=== PATIENT | female | born 2005 | race Two or more races ===

== ENCOUNTER 2024-01-31 16:48 | Emergency (ER) | payer MEDICAID, SELFPAY ==
[2024-01-31 16:55] VITALS: BP 131/85; PULSE 111; RESP 19; TEMP 36.9; O2SAT 99
[2024-01-31 17:00] VITALS: BP 137/83; PULSE 105; PULSE 89; RESP 18; RESP 20; TEMP 36.7; O2SAT 99; BMI 23.6
[2024-01-31 17:39] VITALS: BP 123/85; PULSE 103; RESP 20; TEMP 36.9; O2SAT 97
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
[2024-01-31] MEDS: IBUPROFEN TAB 400 MG TABLET 800 MG PO (18:30)
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
== END 2024-01-31 19:16 | disposition home or self-care (01) ==
PROVIDERS: Emergency Provider Emergency Medicine; PCP Family Medicine
DX: S89.92XA Unspecified injury of left lower leg, initial encounter (principal); S29.9XXA Unspecified injury of thorax, initial encounter; V89.2XXA Person injured in unspecified motor-vehicle accident, traffic, initial encounter
CPT/HCPCS: 71046; 73562; 99283; A9270